=== PATIENT | female | born 1955 | race Caucasian/White ===

== ENCOUNTER 2018-12-11 17:02 | Inpatient (IN) | payer MEDICAID ==
[~2018-12-11] VITALS: Ht 170.2 cm; Wt 80.7 kg
[2018-12-11 17:29] LABS: BASOPHILS 0.5 % (0-2); EOSINOPHILS 2.8 % (0-7); HEMATOCRIT 29.2 % (36.0-48.0); HEMOGLOBIN 9.1 g/dL (12-16); LYMPHOCYTES 22.5 % (15-50); MCH 27.6 pg (26.0-34.0); MCHC 31.2 g/dL (31.0-37.0); MCV 88.5 fL (80.0-100.0); MONOCYTES 5.5 % (2-11); NEUTROPHILS 68.7 % (40-80); PLATELET COUNT 55 10x3/uL (130-400); RDW 17.9 % (11.5-14.5); WBC 2.2 10x3/uL (4.8-10.8)
[2018-12-11 18:09] LABS: ALBUMIN 2.5 g/dL (3.4-5.0); ALKALINE PHOSPHATASE 196 U/L (46-116); ALT (SGPT) 24 U/L (10-68); AMYLASE - SERUM 55 U/L (25-115); BILIRUBIN - TOTAL 1.91 mg/dL (0.2-1.3); CALC OSMOLALITY 284 mosm/kg (275-300); CALCIUM 7.8 mg/dL (8.5-10.1); CARBON DIOXIDE 24.2 mmol/L (21.0-32.0); CHLORIDE - SERUM 110 mmol/L (98-107); CREATININE - SERUM 0.7 mg/dL (0.6-1.3); GLUCOSE 133 mg/dL (74-106); LIPASE 143 U/L (73-393); SODIUM 143 mmol/L (136-145); TROPONIN-I < 0.017 ng/mL (0.000-0.060); UREA NITROGEN 8 mg/dL (7-18); eGFR NON AFRICAN AMERICAN 90 mL/min (90-120)
[2018-12-11 18:21] LABS: POTASSIUM - SERUM 2.9 mmol/L (3.5-5.1)
[2018-12-11 19:00] VITALS: BP 123/64
[2018-12-11 20:49] VITALS: BP 98/51
[2018-12-12] VITALS (7 sets, daily range): BP systolic 102–130; BP diastolic 50–69; BMI 27.9
[2018-12-12] MEDS ORDERED: ELAVIL10 MG PO (06:48)
[2018-12-12] MEDS ORDERED: ALDACTONE50 MG PO (06:48)
[2018-12-12] MEDS ORDERED: CHRONULAC30 ML PO (06:49)
[2018-12-12] MEDS ORDERED: FUROSEMIDE40 MG PO (06:49)
[2018-12-12] MEDS ORDERED: OMEPRAZOLE20 M1 PO (06:50)
[2018-12-12] MEDS ORDERED: FLAGYL500 MG PO (06:50)
[2018-12-12] MEDS ORDERED: K-DUR20 MEQ PO (06:50)
[2018-12-12 07:13] LABS: HEMATOCRIT 27.4 % (36.0-48.0); HEMOGLOBIN 8.6 g/dL (12-16); MCH 28.4 pg (26.0-34.0); MCHC 31.4 g/dL (31.0-37.0); MCV 90.4 fL (80.0-100.0); PLATELET COUNT 55 10x3/uL (130-400); RBC 3.03 10x6/uL (4.00-5.40); RDW 18.6 % (11.5-14.5)
[2018-12-12 07:14] LABS: WBC 2.9 10x3/uL (4.8-10.8)
[2018-12-12 08:11] LABS: EOSINOPHILS 1 % (0-7); LYMPHOCYTES 17 % (15-50); MONOCYTES 1 % (2-11); NEUTROPHILS 81 % (40-80); PLATELET ESTIMATE DECREASED
[2018-12-12 08:36] LABS: ALBUMIN 2.2 g/dL (3.4-5.0); ALKALINE PHOSPHATASE 139 U/L (46-116); ALT (SGPT) 25 U/L (10-68); BILIRUBIN - TOTAL 1.62 mg/dL (0.2-1.3); CALCIUM 7.6 mg/dL (8.5-10.1); CARBON DIOXIDE 19.3 mmol/L (21.0-32.0); CHLORIDE - SERUM 112 mmol/L (98-107); CREATININE - SERUM 0.6 mg/dL (0.6-1.3); GLUCOSE 127 mg/dL (74-106); MAGNESIUM - SERUM 1.9 mg/dL (1.8-2.4); PROTEIN - SERUM 5.6 g/dL (6.4-8.2); SODIUM 141 mmol/L (136-145); eGFR NON AFRICAN AMERICAN > 90 mL/min (90-120)
[2018-12-12 08:50] LABS: CALC OSMOLALITY 281 mosm/kg (275-300); POTASSIUM - SERUM 3.7 mmol/L (3.5-5.1); UREA NITROGEN 11 mg/dL (7-18)
[2018-12-12 11:53] LABS: APPEARANCE CLEAR (CLEAR); COLOR VERY DARK YELLOW (YELLOW); SPECIFIC GRAVITY 1.015 (1.005-1.020)
[2018-12-12 11:54] LABS: BACTERIA MODERATE /hpf (NONE SEEN); BILIRUBIN NEGATIVE (NEGATIVE); CALCIUM OXALATE CRYSTALS 0-5 /hpf (NONE SEEN); EPITHELIAL CELLS 0-5 /hpf (0-5); GLUCOSE NEGATIVE (NEGATIVE); KETONE NEGATIVE (NEGATIVE); NITRITE NEGATIVE (NEGATIVE); PROTEIN TRACE mg/dL (NEGATIVE); RED CELLS - URINE 0-5 /hpf (0-5); UROBILINOGEN NORMAL (NORMAL); WHITE CELLS - URINE 0-5 /hpf (0-5)
[2018-12-13] VITALS: BP 103/52
[2018-12-13 04:00] VITALS: BP 112/58
[2018-12-13 08:05] LABS: HEMATOCRIT 26.1 % (36.0-48.0); HEMOGLOBIN 8.3 g/dL (12-16); MCH 28.3 pg (26.0-34.0); MCHC 31.8 g/dL (31.0-37.0); MCV 89.1 fL (80.0-100.0); MEAN PLATELET VOLUME 8.9 fL (7.4-10.4); RBC 2.93 10x6/uL (4.00-5.40); RDW 18.2 % (11.5-14.5); WBC 2.4 10x3/uL (4.8-10.8)
[2018-12-13 08:17] LABS: ALBUMIN 2.1 g/dL (3.4-5.0); ALKALINE PHOSPHATASE 125 U/L (46-116); ALT (SGPT) 24 U/L (10-68); CALC OSMOLALITY 277 mosm/kg (275-300); CALCIUM 7.2 mg/dL (8.5-10.1); CARBON DIOXIDE 20.6 mmol/L (21.0-32.0); CHLORIDE - SERUM 113 mmol/L (98-107); CREATININE - SERUM 0.6 mg/dL (0.6-1.3); GLUCOSE 88 mg/dL (74-106); MAGNESIUM - SERUM 1.7 mg/dL (1.8-2.4); POTASSIUM - SERUM 3.7 mmol/L (3.5-5.1); SODIUM 141 mmol/L (136-145); UREA NITROGEN 8 mg/dL (7-18); eGFR NON AFRICAN AMERICAN > 90 mL/min (90-120)
[2018-12-13 08:45] VITALS: BP 121/62
[2018-12-13 08:46] LABS: PLATELET COUNT 38 10x3/uL (130-400)
[2018-12-13 10:00] LABS: EOSINOPHILS 4 % (0-7); LYMPHOCYTES 22 % (15-50); MONOCYTES 7 % (2-11); NEUTROPHILS 67 % (40-80); PLATELET ESTIMATE DECREASED
[2018-12-13 10:02] LABS: ROULEAUX OCC
[2018-12-13 14:29] VITALS: BMI 27.9
[2018-12-13 16:56] VITALS: BP 125/72
[2018-12-13 20:00] VITALS: BP 98/43
[2018-12-14] VITALS: BP 99/45
[2018-12-14 04:00] VITALS: BP 160/66; BP 95/47
[2018-12-14 05:46] LABS: HEMATOCRIT 24.8 % (36.0-48.0); HEMOGLOBIN 7.8 g/dL (12-16); MCHC 31.5 g/dL (31.0-37.0); MCV 88.9 fL (80.0-100.0); RBC 2.79 10x6/uL (4.00-5.40); RDW 18.1 % (11.5-14.5); WBC 2.2 10x3/uL (4.8-10.8)
[2018-12-14 05:47] LABS: ALBUMIN 1.9 g/dL (3.4-5.0); ALKALINE PHOSPHATASE 124 U/L (46-116); ALT (SGPT) 22 U/L (10-68); BILIRUBIN - TOTAL 1.28 mg/dL (0.2-1.3); CALC OSMOLALITY 281 mosm/kg (275-300); CARBON DIOXIDE 20.6 mmol/L (21.0-32.0); CHLORIDE - SERUM 112 mmol/L (98-107); CREATININE - SERUM 0.7 mg/dL (0.6-1.3); GLUCOSE 130 mg/dL (74-106); MAGNESIUM - SERUM 1.6 mg/dL (1.8-2.4); POTASSIUM - SERUM 3.4 mmol/L (3.5-5.1); PROTEIN - SERUM 4.9 g/dL (6.4-8.2); SODIUM 141 mmol/L (136-145); UREA NITROGEN 9 mg/dL (7-18); eGFR NON AFRICAN AMERICAN 90 mL/min (90-120)
[2018-12-14 06:28] LABS: PLATELET COUNT 36 10x3/uL (130-400)
[2018-12-14 08:23] VITALS: BP 112/64
[2018-12-14 09:07] LABS: EOSINOPHILS 3 % (0-7); LYMPHOCYTES 38 % (15-50); MONOCYTES 9 % (2-11); NEUTROPHILS 50 % (40-80); PLATELET ESTIMATE DECREASED
[2018-12-14 09:08] LABS: ANISOCYTOSIS 1+; POLYCHROMASIA OCC; SCHISTOCYTES OCC
[2018-12-14 10:16] LABS: HEPATITIS C ANTIBODY >11.0 S/CO RAT (0.0-0.9)
[2018-12-14 11:58] VITALS: BP 135/75
[2018-12-14 14:37] LABS: INR 1.88 (0.85-1.17)
--- NOTE | 2018-12-14 15:37 | EC ---
PATIENT:PARKER JEROME DATE OF SERVICE: 12/13/18 SEX: F MEDICAL RECORD: [id number] DATE OF : 59 LOCATION:D.[facility] [place] AGE OF PATIENT: 63 ADMISSION DATE: 12/13/18 REFERRING PHYSICIAN: INTERPRETING PHYSICIAN: ANISH TRINH MD ECHOCARDIOGRAM REPORT ECHO CHARGES 4 ECHO COMPLETE Date: 12/13/18 CLINICAL DIAGNOSIS: PROTAL HTN ECHOCARDIOGRAPHIC MEASUREMENTS (adult normal given) AC root (d.<3.7cm) 2.7 cm LV Septum d (<1.2 cm> 1.5 cm Valve Excursion 1.6 cm LV Septum (systole) 2.1 cm Left Atria (s.<4.0cm> 4.7 cm LVPW d(<1.2cm) 1.1 cm RV (d.<2.3cm) 3.8 cm LVPW (sytole) 1.7 cm LV diastole(<5.6CM) 5.7 cm MV E-F(>70mm/sec) cm LV systole 3.3 cm LVOT Diameter 1.9 cm MV exc.(>10mm) cm Est.ejection fraction (50-75%) % DOPPLER: LVIT cm/sec A 81 cm/sec E 112 cm/sec LA cm/sec RVSP 35.7 mmHg LVOT 151 cm/sec AOP1/2T m/s Asc. Ao 209 cm/sec RVOT 84 cm/sec RA cm/sec PA 144 cm/sec AV Gradient Peak 17.4 mmHg AV Mean 8.9 mmHg AV Area 1.8 cm MV Gradient Peak 7.0 mmHg MV Mean 3.3 mmHg MV Area cm COMMENTS: Lode Miner: Nikolay CRUZ Telecommunications Operator: 3 Dr. Bartlett TAPE# PACS Pericardial Effusion N DATE OF SERVICE: Adequate 2D, color flow, spectral Doppler, and M-Mode. LVH is present. LV internal dimensions are normal. Wall motion is normal. EF is greater than or equal to 55%. Aortic valve sclerosis without evidence of stenosis by Doppler interrogation. Left atrium is dilated at 4.7 cm. Mitral valve shows no prolapse. Mild MR. Right-sided chambers grossly normal. Mild TR. TRANSINT:[id number] Voice Confirmation ID: [id number] DOCUMENT ID: [id number] ECHOCARDIOGRAM REPORT [id number] PARKER JEROME ANISH TRINH MD at 1537 CC: [id number] DICTATION DATE: 12/14/18 1323 GARDEN EQUIPMENT MECHANIC: 12/14/18 1522 ADM IN [place] [id number] [place] [id number]
[2018-12-14 16:43] VITALS: BP 119/61
[2018-12-14 20:00] VITALS: BP 101/43
[2018-12-15] VITALS: BP 95/47
[2018-12-15 04:00] VITALS: BP 99/54
[2018-12-15 06:58] LABS: ALKALINE PHOSPHATASE 128 U/L (46-116); ALT (SGPT) 23 U/L (10-68); BILIRUBIN - TOTAL 1.33 mg/dL (0.2-1.3); CALC OSMOLALITY 277 mosm/kg (275-300); CALCIUM 7.2 mg/dL (8.5-10.1); CARBON DIOXIDE 20.6 mmol/L (21.0-32.0); CHLORIDE - SERUM 111 mmol/L (98-107); CREATININE - SERUM 0.6 mg/dL (0.6-1.3); GLUCOSE 97 mg/dL (74-106); MAGNESIUM - SERUM 1.7 mg/dL (1.8-2.4); POTASSIUM - SERUM 4.1 mmol/L (3.5-5.1); PROTEIN - SERUM 4.8 g/dL (6.4-8.2); SODIUM 140 mmol/L (136-145); UREA NITROGEN 9 mg/dL (7-18); eGFR NON AFRICAN AMERICAN > 90 mL/min (90-120)
[2018-12-15 07:07] LABS: BASOPHILS 0 % (0-2); EOSINOPHILS 5.8 % (0-7); HEMATOCRIT 21.5 % (36.0-48.0); INR 2.51 (0.85-1.17); LYMPHOCYTES 30.1 % (15-50); MCH 28.4 pg (26.0-34.0); MCHC 32.1 g/dL (31.0-37.0); MCV 88.5 fL (80.0-100.0); MONOCYTES 7.8 % (2-11); NEUTROPHILS 56.3 % (40-80); PROTIME 26.3 SECONDS (11.6-15.0); RBC 2.43 10x6/uL (4.00-5.40); RDW 17.9 % (11.5-14.5)
[2018-12-15 07:09] LABS: HEMOGLOBIN 6.9 g/dL (12-16); PLATELET COUNT 25 10x3/uL (130-400)
[2018-12-15 09:44] VITALS: BP 115/54
[2018-12-15 10:56] VITALS: BP 144/74
--- NOTE | 2018-12-15 12:46 | MORECARE ---
CASE MANAGEMENT DISCHARGE SUMMARY PATIENT: PARKER JEROME UNIT: [id number] ADM DATE: 12/13/18 AGE: 63 : [birth year] SEX: F ROOM/BED: D.2222 AUTHOR: RIVERA,DOC PHYSICIAN: REFERRING PHYSICIAN: HEATHER SAHA MD DATE OF SERVICE: 12/15/18 Discharge Plan Patient Name: PARKER JEROME Facility: [facility]:[place] : 1955 Planned Disposition: Acute Care Hospital Anticipated Discharge Date: Discharge Date: Expected LOS: Initial Reviewer: [email or web address] Initial Review Date: 12/15/2018 Generated: 12/15/18 1:46 pm Comments DCP- Discharge Planning Updated by [email or web address]: Tameka Fox on 12/15/18 11:[address] Patient Name: PARKER JEROME Admission Status: ER Accout number: [id number] Admission Date: 12-13-2018 : 1955 Admission Diagnosis: Attending: HEATHER SAHA Current LOS: 2 Anticipated DC Date: Planned Disposition: Acute Care Hospital Primary Insurance: MEDICAID [place] Discharge Planning Comments: CM met with patient to discuss discharge planning, she is alone in the room. She states she lives with her in a single story home. States she has been independent with all ADL's and AIDL's. She states her PCP is Radha Nguyễn in [place]. States she see's a liver doctor at [facility]. Ngozi Lora instructed me to start the process of transferring to [facility] and patient informed and agrees. I called [facility] and spoke to Priya and clinical fax. CM will continue to follow and assist with discharge planning/needs. Manager Cardiac: Tameka Fox DCPIA - Discharge Planning Initial Assessment Updated by [email or web address]: Tameka Fox on 12/15/18 12:41 pm * Is the patient Alert and Oriented? Yes * How many steps to enter\exit or inside your home? 0/0 * PCP Radha Nguyễn in [place] * Pharmacy [facility] in [place] * Preadmission Environment Home with Family * ADLs Independent * Equipment None * List name and contact numbers for known caregivers / representatives who currently or will assist patient after discharge: Travis Dunaway - [facility] - [phone] * Verbal permission to speak to the caregivers and representatives has been obtained from the patient. Yes * Community resources currently utilized None * Additional services required to return to the preadmission environment? Yes * Can the patient safely return to the preadmission environment? Yes * Has this patient been hospitalized within the prior 30 days at any hospital? No External Providers External Provider: [facility] Next Contact Date: Service Request Date: Service Type: Resolution: Reviewer: Comments: Patient Name: PARKER JEROME Page [id number] at 1246 All edits/amendments must be made on the electronic document DICTATION DATE: 12/15/181244 DATABASE ADMIN: KAREN 12/15/18 1245 RPT#: [id number] DC DATE: STATUS: ADM IN [facility] [address] [place] [address] END OF REPORT
--- NOTE | 2018-12-15 16:32 | MORECARE ---
CASE MANAGEMENT DISCHARGE SUMMARY PATIENT: PARKER JEROME UNIT: [id number] ADM DATE: 12/13/18 AGE: 63 : [birth year] SEX: F ROOM/BED: D.2222 AUTHOR: RIVERA,DOC PHYSICIAN: REFERRING PHYSICIAN: HEATHER SAHA MD DATE OF SERVICE: 12/15/18 Discharge Plan Patient Name: PARKER JEROME Facility: [facility]:[place] : 1955 Planned Disposition: Acute Care Hospital Anticipated Discharge Date: Discharge Date: Expected LOS: Initial Reviewer: [email or web address] Initial Review Date: 12/15/2018 Generated: 12/15/18 5:32 pm Comments DCP- Discharge Planning Updated by [email or web address]: Tameka Fox on 12/15/18 3:[address] Ngozi called and states Dr. Page is the Liver doctor and Dr. Cornejo is the hospitalist that have accepted the patient at [facility]. They currently do not have a bed available. Oralia notified to have Dr. Pena sign the ambulance form and to have the supervisor fruit grading sign the transfer back agreement and ambulance form. CM will continue to follow and assist with discharge planning/needs. DCP- Discharge Planning Updated by [email or web address]: Tameka Fox on 12/15/18 11:[address] Patient Name: PARKER JEROME Admission Status: ER Accout number: [id number] Admission Date: 12-13-2018 : 1955 Admission Diagnosis: Attending: HEATHER SAHA Current LOS: 2 Anticipated DC Date: Planned Disposition: Acute Care Hospital Primary Insurance: MEDICAID [place] Discharge Planning Comments: CM met with patient to discuss discharge planning, she is alone in the room. She states she lives with her in a single story home. States she has been independent with all ADL's and AIDL's. She states her PCP is Radha Nguyễn in [place]. States she see's a liver doctor at [facility]. Ngozi Lora instructed me to start the process of transferring to [facility] and patient informed and agrees. I called [facility] and spoke to Priya and clinical fax. CM will continue to follow and assist with discharge planning/needs. Blade Changer: Tameka Fox DCPIA - Discharge Planning Initial Assessment Updated by [email or web address]: Tameka Ruddy on 12/15/18 12:41 pm * Is the patient Alert and Oriented? Yes * How many steps to enter\exit or inside your home? 0/0 * PCP Radha Nguyễn in [place] * Pharm[facility] in [place] * Preadmission Environment Home with Family * ADLs Independent * Equipment None * List name and contact numbers for known caregivers / representatives who currently or will assist patient after discharge: Travis Dunaway [facility] - [phone] * Verbal permission to speak to the caregivers and representatives has been obtained from the patient. Yes * Community resources currently utilized None * Additional services required to return to the preadmission environment? Yes * Can the patient safely return to the preadmission environment? Yes * Has this patient been hospitalized within the prior 30 days at any hospital? No Last DP export: 12/15/18 11:46 a Patient Name: PARKER JEROME Page [id number] at 1632 All edits/amendments must be made on the electronic document DICTATION DATE: 12/15/18 163 KINESIOLOGY INTERNSHIP: KAREN 12/15/18 1632 RPT#: [id number] [place] DATE: STATUS: ADM IN [facility] [address] [place] [address] END OF REPORT
[2018-12-15 18:35] VITALS: BP 116/78
[2018-12-15 20:00] VITALS: BP 121/67
[2018-12-16 14:47] VITALS: Ht 170.2 cm; Wt 80.7 kg
--- NOTE | 2018-12-17 11:48 | MORECARE ---
CASE MANAGEMENT DISCHARGE SUMMARY PATIENT: PARKER JEROME UNIT: [id number] ADM DATE: 12/13/18 AGE: 63 : 59 SEX: F ROOM/BED: D.2222 AUTHOR: RIVERA,DOC PHYSICIAN: REFERRING PHYSICIAN: HEATHER SAHA MD DATE OF SERVICE: 12/17/18 Discharge Plan Patient Name: PARKER JEROME Facility: [facility]:[place] : 1955 Planned Disposition: Acute Care Hospital Anticipated Discharge Date: Discharge Date: 12/15/2018 Expected LOS: 0 Initial Reviewer: [email or web address] Initial Review Date: 12/15/2018 Generated: 12/17/18 12:48 pm Comments DCP- Discharge Planning Updated by [email or web address]: Tameka Fox on 12/15/18 3:[address] Ngozi called and states Dr. Page is the Liver doctor and Dr. Cornejo is the hospitalist that have accepted the patient at [facility] [[email or web address] They currently do not have a bed available. Oralia notified to have Dr. Pena sign the ambulance form and to have the melt house supervisor sign the transfer back agreement and ambulance form. CM will continue to follow and assist with discharge planning/needs. DCP- Discharge Planning Updated by [email or web address]: Tameka Fox on 12/15/18 11:[address] Patient Name: PARKER JEROME Admission Status: ER Accout number: [id number] Admission Date: 12-13-2018 : 1955 Admission Diagnosis: Attending: HEATHER SAHA Current LOS: 2 Anticipated DC Date: Planned Disposition: Acute Care Hospital Primary Insurance: MEDICAID [place] Discharge Planning Comments: CM met with patient to discuss discharge planning, she is alone in the room. She states she lives with her in a single story home. States she has been independent with all ADL's and AIDL's. She states her PCP is Radha Nguyễn in [place]. States she see's a liver doctor at [facility] [[email or web address] Ngozi Lora instructed me to start the process of transferring to [facility] [[email or web address]] and patient informed and agrees. I called [facility] and spoke to Priya and clinical fax. CM will continue to follow and assist with discharge planning/needs. [place] Die Maker: Tameka Fox DCPIA - Discharge Planning Initial Assessment Updated by [email or web address]: Tameka Fox on 12/15/18 12:41 pm * Is the patient Alert and Oriented? Yes * How many steps to enter\exit or inside your home? 0/0 * PCP Radha Nguyễn in [place] * Pharmacy [facility] in [place] * Preadmission Environment Home with Family * ADLs Independent * Equipment None * List name and contact numbers for known caregivers / representatives who currently or will assist patient after discharge: Travis Dunaway - [facility] - [phone] * Verbal permission to speak to the caregivers and representatives has been obtained from the patient. Yes * Community resources currently utilized None * Additional services required to return to the preadmission environment? Yes * Can the patient safely return to the preadmission environment? Yes * Has this patient been hospitalized within the prior 30 days at any hospital? No Last DP export: 12/15/18 3:32 p Patient Name: PARKER JEROME Page [id number] at 1148 All edits/amendments must be made on the electronic document DICTATION DATE: 12/17/18 1147 WATER TANKER DRIVER: KAREN 12/17/18 1147 RPT#: [id number] [place] DATE:12/15/18 STATUS: DIS IN [address] [place] [address] END OF REPORT
[2018-12-17 15:15] LABS: HCVGENO - HEP C QUANT HCV Not Detected IU/mL (())
== END 2018-12-15 23:43 | disposition short-term general hospital (02) | DRG 442 ==
LOC: D.ER 17:02 → OBSVTIME 20:51 → D.MS 20:51
PROVIDERS: Family Medicine; Internal Medicine Gastroenterology; ADMIT Internal Medicine Nephrology; ATTEND Internal Medicine Nephrology
DX: K72.00 Acute and subacute hepatic failure without coma (principal); D61.818 Other pancytopenia; A09 Infectious gastroenteritis and colitis, unspecified; E44.0 Moderate protein-calorie malnutrition; J98.11 Atelectasis; R18.8 Other ascites; F17.213 Nicotine dependence, cigarettes, with withdrawal; D61.9 Aplastic anemia, unspecified; E87.6 Hypokalemia; K52.9 Noninfective gastroenteritis and colitis, unspecified; K74.60 Unspecified cirrhosis of liver; N20.0 Calculus of kidney; D70.9 Neutropenia, unspecified; D69.6 Thrombocytopenia, unspecified; D73.2 Chronic congestive splenomegaly